=== PATIENT | female | born 2000 | race Caucasian/White ===

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

== ENCOUNTER 2020-07-29 07:24 | Day surgery (SDC) | payer OTHER ==
[2020-07-27 11:33] VITALS: BMI 45.7
[~2020-07-29 07:24] MED LIST changes: -DEXAMETHASONE SOD PHOSPHATE 10 MG/ML 1 ML VIAL IV ONE; +DEXAMETHASONE SOD PHOSPHATE 4 MG/ML 1 ML VIAL IV ONE; -HEPARIN SODIUM,PORCINE 5,000 UNIT/ML 1 ML VIAL SQ ONE; +LIDOCAINE 1% (10MG/ML) FOR IV START INTRADERMA PRN; -LIDOCAINE 1% 20 ML VIAL (10MG/ML) FOR IV START INTRADERMA PRN; -MIDAZOLAM 2 MG/2 ML VIAL IV PRN; -ONDANSETRON ODT 4 MG TAB PO ONE; -PROMETHAZINE INJ 6.25 MG in SODIUM CHLORIDE 0.9% 50 ML IVPB PRN; +Pre Op ABX Message 1 EACH MISC MISCELLANE ONE; -SCOPOLAMINE 1.5MG/72HR PATCH TRANSDERM ONE; -ceFAZolin IN SWFI 2 GM/20 ML SYRINGE IVP ONE; -fentaNYL (PF) 50 MCG/ML 2 ML AMP IV PRN
[2020-07-29 07:50] VITALS: RESP 16
[2020-07-29] MEDS: MIDAZOLAM 2 MG/2 ML VIAL IV PRN ×2 (08:25→08:43)
[2020-07-29] MEDS: ONDANSETRON 4 MG/2 ML VIAL IVP ONE ×2 (08:44→11:50)
[2020-07-29] MEDS ORDERED: LIDOCAINE 1% INJ 10MG/ML (20 ML MDV) ONE (09:40)
[2020-07-29] MEDS ORDERED: ROPIVACAINE 5 MG/ML 30 ML VIAL ONE (09:40)
[2020-07-29] MEDS ORDERED: PROPOFOL 10 MG/ML 20 ML VIAL IV ONE (09:40)
[2020-07-29] MEDS ORDERED: fentaNYL (PF) 50 MCG/ML 2 ML AMP ONE (09:40)
[2020-07-29] MEDS ORDERED: SUCCINYLCHOLINE CHLORIDE 100 MG/5 ML SYR IV ONE (09:40)
[2020-07-29] MEDS ORDERED: DEXAMETHASONE SOD PHOSPHATE 4 MG/ML 1 ML VIAL ONE (09:40)
[2020-07-29] MEDS ORDERED: MIDAZOLAM 2 MG/2 ML VIAL ONE (09:40)
[2020-07-29] MEDS ORDERED: LIDOCAINE 2%-EPI 1:100,000 20 ML VIAL SQ ONE (10:20)
[2020-07-29] MEDS ORDERED: BUPIVACAINE (PF) 0.25% 30 ML VIAL SQ ONE (10:20)
--- NOTE | 2020-07-29 11:04 | P.ANPRN ---
Procedure Note - Anesthesia - Nerve Block Performed Right Interscalene Single Time Out Performed: Yes Date of Procedure: 07/29/20 Procedure Start Time: Procedure Stop Time: Location of Patient: PreOp Indication: Acute Post-Operative Pain, Requested by Surgeon Sedation Type: Sedate with meaningful contact maintained Preparation: Sterile Prep Position: Supine Needle Types: Pajunk Needle Gauge: 21 Ultrasound used to visualize needle placement: Yes Ultrasound used to observe medication spread: Yes Blood Aspirated: No Pain Paresthesia on Injection Noted: No Resistance on Injection: Normal Image Stored and Saved: Yes Events: Uneventful and Well Tolerated (ropi .5% 20cc plus dexamethasone 4mg)
[2020-07-29] MEDS: HYDROmorphone 0.5 MG/0.5 ML SYRINGE IVP PRN ×3 (11:45→12:12)
[2020-07-29 11:50] VITALS: TEMP 97.2
[2020-07-29] MEDS ORDERED: KETOROLAC 15 MG/ML 1 ML VIAL IVP ONE (12:12)
[2020-07-29 13:05] VITALS: BP 120/75; PULSE 102
--- NOTE | 2020-07-29 18:26 | OP ---
OPERATIVE REPORT DATE OF PROCEDURE: 07/29/2020 PREOPERATIVE DIAGNOSIS: Right shoulder anterior-inferior instability. POSTOPERATIVE DIAGNOSIS: Right shoulder anterior-inferior capsular labral complex disruption, Bankart lesion. PROCEDURE PERFORMED: Right shoulder arthroscopic Bankart repair. SURGEON: Rui Vance M.D. MONUMENT MASON: Dav Ledezma PA-C. ANESTHESIA: General endotracheal with an interscalene block. TOURNIQUET: None. DRAINS: None. COMPLICATIONS: None apparent. ESTIMATED BLOOD LOSS: Minimal. DISPOSITION: Post-Anesthesia Care Unit. EXAMINATION UNDER ANESTHESIA OF THE RIGHT SHOULDER: Elevation 160 degrees. External rotation at the side was to 45 degrees. External rotation at 90 degrees. Adduction was to 95 degrees. Internal rotation at 90 degrees. Adduction was 80 degrees. Sulcus was 1 cm anterior translation over the glenoid rim, posterior translation to the glenoid rim. ARTHROSCOPIC FINDINGS: 1. Superior labrum. Biceps anchor was intact. The labrum was hypermobile superiorly with an intact attachment. 2. Anterior inferior glenoid. Approximately 15 mm anterior glenoid soft tissue Bankart lesion went from the 5 o'clock position to the 3 o'clock position on the glenoid face. 3. Posterior labrum was normal. 4. Rotator cuff was normal. 5. Humeral head was normal with a very small Hill-Sachs lesion, which was non- engaging. Glenoid face cartilage was normal. DESCRIPTION OF THE PROCEDURE: Patient was identified in the preoperative holding area. Surgical site was marked by both the patient and myself. She was given 2 grams of Ancef IV for prophylactic purposes. She was then transported to the operative suite. She was placed supine on the operating room table. General anesthetic was then administered and dosed per the anesthesia department without apparent complication. She was then placed in the left lateral decubitus position, well padded in preparation for surgery. Great care was taken to ensure that her cervical spine was in neutral alignment. A well-padded axillary roll was placed and her legs were appropriately padded as well. The patient's right upper extremity than prepped and draped in the usual sterile fashion. Standard surgical pause was undertaken to ensure that appropriate preoperative antibiotics had been given and that we were operating on the correct site. All staff in the room were in agreement and we proceeded. Ten pounds of lateral traction and 10 pounds of longitudinal traction were applied to the upper extremity. The acromion as well as the AC joint coracoid were marked with a surgical pen. The skin of the anticipated portal sites was also marked with a surgical pen. The skin of the anticipated port sites was then injected with 0.25% Marcaine with epinephrine. I then proceeded to make the posterior portal. A 30-degree arthroscope was introduced into the glenohumeral joint through this portal. The arthroscopic pump pressure set at 40 mmHg and maintained at that level throughout the entire case. Next, utilizing an 18-gauge spinal needle to topically localize the placement, an anterior superior portal was made. This was made just underneath the biceps tendon high in the rotator interval. A small 5.75 mm cannula was then placed and the outflow was then done through this cannula. A second anterior inferior portal was made. This was made on the inferior aspect of the rotator interval just above the superior border of the subscapularis. An 8.25 mm cannula was then placed and then the outflow was switched to this cannula. A diagnostic arthroscopy of the shoulder was then performed. The findings were noted above. She had a soft tissue Bankart lesion at the anterior inferior glenoid rim. There was no bony component to the Bankart lesion. There was estimated to be no bone loss. The Hill-Sachs lesion did not engage and it was on on-tract lesion. I then proceeded to utilize the Liberator device to debride all scar tissue to the anterior inferior glenoid. This freed up the labrum. It was freely mobile when I was done. Great care was taken to stay on the bone of the anterior-inferior glenoid as to avoid any iatrogenic injury to the axillary nerve. I then proceeded with the repair. I first put a 1.8 mm Arthrex FiberTak anchor at the 5 o'clock position on the glenoid. This was placed just barely onto the glenoid face, as this was to move the labrum up laterally onto the face of the glenoid. The FiberTak suture had excellent purchase in bone. I utilized a 45-degree curved suture-passer. I took an appropriate bite of capsule and labrum. The sutures were shuttled appropriately and then the knotless FiberTak suture was tightened. This re-tensioned the anterior inferior glenohumeral ligament and brought the anterior inferior capsular labral complex back up superiorly to the glenoid. A second 1.8 mm Arthrex FiberTak anchor was then placed at approximately the 4 o'clock position on the glenoid face. Again it had excellent purchase in bone. The sutures were shuttled appropriately. The Arthrex 45-degree suture-passer was utilized, taking appropriate bite of capsule and labral tissue. The sutures were then shuttled appropriately and tensioned very well. This again re-tensioned the anterior inferior glenoid capsular labral complex. The suture was cut flush with the anchor. I then decided to place a third anchor at approximately the 3 o'clock position. Again it was a 1.8 mm Arthrex FiberTak knotless suture. This again had excellent purchase in bone. Again the 45-degree suture-passer was utilized to take an appropriate bite of capsule and labral tissue. The sutures were then shuttled appropriately and then the fiber tape was tensioned very nicely and then cut flush with the anchor. At this point I moved the arthroscope back to the anterior superior portal to view the repair. The anterior inferior labrum had been restored very nicely back to the superior most lateral aspect of the anterior inferior glenoid. The tension in the anterior inferior glenohumeral ligament had been restored. The humeral head was centered on the glenoid. A nice bumper effect had been created anterior-inferiorly. At this point in time no further work was deemed necessary. The shoulder was thoroughly irrigated, then drained with an outflow cannula. The arthroscope equipment was removed from the shoulder. The arthroscopic portals were then closed with 3-0 nylon interrupted suture. Sterile compressive dressing was then applied. The patient's right upper extremity was placed into a standard sling. All sponge and needle counts were deemed correct prior to closure. The patient tolerated the procedure without apparent complication. She was transferred to the recovery room in stable condition. MMODL / IJN: [id number] /
== END 2020-07-29 13:27 | disposition home or self-care (01) ==
LOC: OR 07:24
PROVIDERS: ATTEND Orthopaedic Surgery Sports Medicine
DX: M25.311 Other instability, right shoulder (principal); S43.014D Anterior dislocation of right humerus, subsequent encounter; V49.9XXD Car occupant (driver) (passenger) injured in unspecified traffic accident, subsequent encounter; F41.9 Anxiety disorder, unspecified; K21.9 Gastro-esophageal reflux disease without esophagitis; E66.01 Morbid (severe) obesity due to excess calories; Z88.8 Allergy status to other drugs, medicaments and biological substances; Z79.899 Other long term (current) drug therapy; Z90.49 Acquired absence of other specified parts of digestive tract; Z98.818 Other dental procedure status; Z82.49 Family history of ischemic heart disease and other diseases of the circulatory system; Z68.42 Body mass index [BMI] 45.0-49.9, adult
CPT/HCPCS: 29806; 64415; 81025; 76942; C1713 ×2; J2250; J1100; J0690; J2405; J2001; J3010; J2795; J1885; J0330; J2704; J1170